=== PATIENT | female | born 1985 | race Caucasian/White ===

== ENCOUNTER 2020-06-03 14:16 | Emergency (ER) | payer OTHER ==
[~2020-06-03] VITALS: Ht 167.6 cm; Wt 62.9 kg
[2020-06-03 14:27] VITALS: BP 172/103
[2020-06-03] MEDS ORDERED: DOXY100C43 PO (16:27)
[2020-06-03] MEDS ORDERED: DOXYCYCLINE 100MG CAPSULE PO STA (16:28)
== END 2020-06-03 16:55 | disposition home or self-care (01) ==
LOC: ER 14:17
DX: L02.01 Cutaneous abscess of face (principal); I10 Essential (primary) hypertension; F15.10 Other stimulant abuse, uncomplicated; Z79.899 Other long term (current) drug therapy
CPT/HCPCS: 99283